=== PATIENT | male | born 2000 | race Caucasian/White ===

== ENCOUNTER 2021-07-18 13:41 | Inpatient (IN) | payer MEDICAID ==
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
[2021-07-18 14:45] LABS: Amphetamine Screen,Urine Not Detected (NotDetected); Barbiturate Screen,Urine Not Detected (NotDetected); Benzodiazepines Screen,Urine Not Detected (NotDetected); Cocaine Screen,Urine Not Detected (NotDetected); Methadone Screen, Urine Not Detected (NotDetected); Opiate Screen,Urine Not Detected (NotDetected); Oxycodone Screen, Urine Not Detected (NotDetected); Phencyclidine Screen,Urine Not Detected (NotDetected); Tricyclic Antidepressant,Urine Not Detected (NotDetected); Urn Cannabinoid Scrn Detected (NotDetected)
[2021-07-18] MEDS ORDERED: ACETAMINOPHEN TAB 325 MG TAB PO PRN (19:50)
[2021-07-18] MEDS ORDERED: MAGNESIUM HYDROXIDE 2,400 MG/10 ML CUP PO PRN (19:50)
[2021-07-18] MEDS ORDERED: MAG HYDROX/AL HYDROX/SIMETH 30 ML CUP PO PRN (19:50)
[2021-07-18] MEDS ORDERED: LORazepam 2 MG/ML INJ IM PRN (19:53)
[2021-07-18] MEDS ORDERED: HALOPERIDOL LACTATE 5 MG/ML 1 ML VIAL IM PRN (19:54)
[2021-07-18] MEDS ORDERED: haloperidoL 5 MG TAB PO PRN (19:54)
[2021-07-18] MEDS ORDERED: LORATADINE 10 MG TAB PO PRN (19:55)
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
[2021-07-19 07:23] LABS: Basophils % (A) 0 %; Eosinophils # (A) 0.1 k/uL (0-0.7); Eosinophils % (A) 1 %; HCT 43.9 % (39.0-53.0); HGB 14.9 gm/dL (13.0-17.5); Lymphocytes # (A) 2.6 k/uL (1.0-4.8); Lymphocytes % (A) 25 %; MCH 32.4 pg (25.0-35.0); MCV 95.4 fL (80.0-100.0); Mean Platelet Volume 6.8; Monocytes # (A) 0.6 k/uL (0-1.0); Monocytes % (A) 6 %; Neutrophils # (A) 7.2 k/uL (1.3-7.7); Neutrophils % (A) 68 %; Platelet Count 342 k/uL (150-450); RDW 12.2 % (11.5-15.5); WBC 10.7 k/uL (3.8-10.6)
[2021-07-19 07:51] LABS: ALT 12 U/L (4-49); AST 21 U/L (17-59); African American GFR (CKD) >90 (>60 ml/min/1.73 sqM); Albumin 4.8 g/dL (3.5-5.0); Alkaline Phosphatase 40 U/L (38-126); Anion Gap 9 mmol/L; Blood Urea Nitrogen 10 mg/dL (9-20); Calcium 10.1 mg/dL (8.4-10.2); Carbon Dioxide 24 mmol/L (22-30); Chloride 105 mmol/L (98-107); Glucose 115 mg/dL (74-99); Non-African American GFR(CKD) >90 (>60 ml/min/1.73 sqM); Potassium 4.3 mmol/L (3.5-5.1); Sodium 138 mmol/L (137-145); Total Bilirubin 0.6 mg/dL (0.2-1.3); Total Protein 7.6 g/dL (6.3-8.2)
[2021-07-19] MEDS ORDERED: NON FORMULARY DRUG (Progesterone, Micronized [Progesterone] 100 MG Capsule) PO SCH (09:00)
[2021-07-19] MEDS: BICALUTAMIDE 50 MG TAB PO SCH ×2 (09:00→09:01)
[2021-07-19] MEDS: NON FORMULARY DRUG (Emtricitabine/Tenofov Alafenam [Descovy 200-25 Mg Tablet] 1 EACH Table PO SCH (09:01)
[2021-07-19] MEDS: PATIENT'S OWN (Progesterone, Micronized [Progesterone] 100 MG Capsule) PO SCH (10:06)
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
[2021-07-19 14:18] VITALS: BMI 18.3
[2021-07-19] MEDS: CITALOPRAM HYDROBROMIDE 10 MG TAB PO SCH (20:29)
[2021-07-19] MEDS: LORazepam 1 MG TAB PO PRN (23:37)
[2021-07-20] MEDS: PATIENT'S OWN (Progesterone, Micronized [Progesterone] 100 MG Capsule) PO SCH (08:16)
--- NOTE | 2021-07-20 10:33 | PN ---
PROGRESS NOTE DATE OF SERVICE: 07/20/2021. CHIEF COMPLAINT: The patient had made suicide statements. He was in a high distressed state. There was possible aggressive behavior at home. INTERVAL HISTORY: The patient is transgender and identify herself as female. She had a quiet day yesterday. She was out on the unit. She attended groups. She was appropriate in interactions with staff and peers. She was compliant with treatment. She did come in on a petition, though apparently signed a formal voluntary. She said that she took her Celexa last night and felt that it got her very restless. She received an Ativan p.r.n. at 11:30 pm, which seemed to help. She was able to sleep the night. Today she has been up. She generally reports things are going fairly well for her. When I reviewed her. history, the main issue appeared to be the struggles she experiences with her parents. She has lived with her parents at different times and recently just moved back home because of financial issues. Her main complaint is that her parents are very controlling, and have expectations for her that she disagrees with. She does acknowledge that she has had long-term emotional issues which she describes mainly as part of the struggles she has had in her family situation. She does not identify specific traumatic events, but acknowledges that there have always been a contentious situation between her and her parents. She had been working at [employer], though says that she was experiencing some stress with work demands as well as keeping up with finances. She did have concern when we talked about the possibility of Celexa interfering with sexual function. She acknowledges that therapy may be a critical intervention for her. She is comfortable continuing with Celexa. MENTAL STATUS: Patient was somewhat restless. She gave a good eye contact. She answered questions appropriately. Her thoughts were clear and coherent. She was spontaneous and interactive. Her affect was somewhat intense. She had a friendly manner. She smiled some, though also she could easily well up with tears, especially when talking about family issues. That went back and forth for her. Her mood was dysphoric. She was significantly distressed. There was no indication of thought disorder. She denied thoughts of harm. She was oriented and alert. ASSESSMENT: I will continue the current diagnosis and treatment plan. We will continue to engage the patient in individual and group therapeutic activities. I will continue psychotropic medications the same namely Celexa 10 mg a day. We discussed her long- term use of marijuana. She does note that she has been using less of it of late compared to a few years back, though she acknowledges that she uses some marijuana in one form or another on a daily basis. She did state that she was willing to try to go off it for a few months to see how that may impact other issues in regards to her mental health. We talked about discharge planning and specifically possible referral for individual psychotherapy. We will focus on stabilization and discharge planning. ELOISA / LORIN: [id number] / AMY
[2021-07-20] MEDS: BICALUTAMIDE 50 MG TAB PO SCH ×2 (11:16→11:24)
[2021-07-20] MEDS: NON FORMULARY DRUG (Emtricitabine/Tenofov Alafenam [Descovy 200-25 Mg Tablet] 1 EACH Table PO SCH (14:21)
[2021-07-20] MEDS: CITALOPRAM HYDROBROMIDE 10 MG TAB PO SCH (20:05)
[2021-07-20] MEDS: LORazepam 1 MG TAB PO PRN (23:23)
[2021-07-21] MEDS: PATIENT'S OWN (Progesterone, Micronized [Progesterone] 100 MG Capsule) PO SCH (08:20)
[2021-07-21] MEDS: BICALUTAMIDE 50 MG TAB PO SCH (08:21)
[2021-07-21] MEDS: NON FORMULARY DRUG (Emtricitabine/Tenofov Alafenam [Descovy 200-25 Mg Tablet] 1 EACH Table PO SCH (08:25)
[2021-07-21] MEDS ORDERED: HYDROCORTISONE SUPPOSITORY 25 MG SUPP RECTAL PRN (13:57)
[2021-07-21] MEDS ORDERED: HYDROCORTISONE SUPPOSITORY 25 MG SUPP RECTAL SCH (14:00)
[2021-07-21] MEDS: CITALOPRAM HYDROBROMIDE 10 MG TAB PO SCH (20:24)
[2021-07-21] MEDS: LORazepam 1 MG TAB PO PRN (23:35)
[2021-07-22 06:38] VITALS: RESP 16
[2021-07-22] MEDS: PATIENT'S OWN (Progesterone, Micronized [Progesterone] 100 MG Capsule) PO SCH (07:50)
[2021-07-22] MEDS: BICALUTAMIDE 50 MG TAB PO SCH (07:54)
[2021-07-22] MEDS: NON FORMULARY DRUG (Emtricitabine/Tenofov Alafenam [Descovy 200-25 Mg Tablet] 1 EACH Table PO SCH (07:55)
--- NOTE | 2021-07-22 13:59 | PN ---
PROGRESS NOTE DATE OF SERVICE: 07/21/2021. CHIEF COMPLAINT: The patient had made suicide statements. He was in a high distressed state. There was possible aggressive behavior at home. INTERVAL HISTORY: The patient has been doing fairly well. He had a quiet day yesterday. He comes out on the unit. He interacts with others. He attends groups. He feels that overall his mood has been improving. He slept well last night. Today he has been up. Again she has been out. He has no specific complaints or concerns today. He feels that medications have been helping her. He says that some of the difficult feelings, including activation that he felt he had with the first few doses of Celexa, has quieted down. He was able to acknowledge that regular use of marijuana potentially has aggravated some of his mood difficulties. He has been appropriate in interactions with staff and peers. He was able to discuss some discharge planning issues. He tolerates his psychotropic medications. MENTAL STATUS: Patient sat without much restlessness. He gave good eye contact. Psychomotor activity and speech were normal. His thoughts were clear. He had a fair range of affect. He smiled. He had a friendly manner. His mood was even. He did not appear to be distressed. There was no indication of thought disorder. There were no thoughts of harm. Cognition was clear. ASSESSMENT: I will continue the current diagnosis and treatment plan. I will continue psychotropic medications the same. I discussed longer-term issues relating to therapy with antidepressants. We reviewed some basics in terms of his followup. We will focus on stabilization and discharge planning. MMREENA / LORIN: [id number] /
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
[2021-07-22] MEDS: CITALOPRAM HYDROBROMIDE 10 MG TAB PO SCH (20:08)
[2021-07-22] MEDS: LORazepam 1 MG TAB PO PRN (22:36)
[2021-07-23 07:06] VITALS: BP 117/60; PULSE 102; TEMP 97.2
[2021-07-23] MEDS: BICALUTAMIDE 50 MG TAB PO SCH (07:54)
[2021-07-23] MEDS: PATIENT'S OWN (Progesterone, Micronized [Progesterone] 100 MG Capsule) PO SCH (07:54)
[2021-07-23] MEDS: NON FORMULARY DRUG (Emtricitabine/Tenofov Alafenam [Descovy 200-25 Mg Tablet] 1 EACH Table PO SCH (07:59)
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
[2021-07-24] MEDS ORDERED: ESTRADIOL VALERATE IM SCH (09:00)
== END 2021-07-23 13:25 | disposition home or self-care (01) | DRG 885 ==
LOC: EC 13:41 → 3MHU 18:28
PROVIDERS: ADMIT Psychiatry & Neurology Psychiatry; ATTEND Psychiatry & Neurology Psychiatry
DX: F39 Unspecified mood [affective] disorder (principal); R45.851 Suicidal ideations; F60.89 Other specific personality disorders; Z20.822 Contact with and (suspected) exposure to COVID-19; F12.10 Cannabis abuse, uncomplicated; F43.10 Post-traumatic stress disorder, unspecified; F41.9 Anxiety disorder, unspecified; F90.9 Attention-deficit hyperactivity disorder, unspecified type; R45.6 Violent behavior; F64.0 Transsexualism; F17.290 Nicotine dependence, other tobacco product, uncomplicated; Z71.6 Tobacco abuse counseling; Z79.899 Other long term (current) drug therapy; Z79.890 Hormone replacement therapy; Z87.19 Personal history of other diseases of the digestive system; Z98.818 Other dental procedure status; Z56.0 Unemployment, unspecified; Z71.51 Drug abuse counseling and surveillance of drug abuser; Z98.890 Other specified postprocedural states; Z88.8 Allergy status to other drugs, medicaments and biological substances
CPT/HCPCS: 80053; 80306; 82075; 84443; 85025; 87635; 99285